=== PATIENT | male | born 1975 | race Caucasian/White ===

== ENCOUNTER 2017-12-14 12:08 | Emergency (ER) | payer SELFPAY ==
[2017-12-14 13:04] LABS: ADD MAN DIFF? NO
[2017-12-14] MEDS: SOD CHLORIDE 0.9% 1,000 ML IV (13:06)
[2017-12-14] MEDS: KETOROLAC 30 MG INJ IV (13:06)
[2017-12-14] MEDS: ACETAMINOPHEN 325 MG TAB PO (13:06)
[2017-12-14 13:09] LABS: WHITE BLOOD COUNT 16.6 10^3/ul (4.8-10.8)
[2017-12-14 13:09] LABS: BASOPHIL # 0.1 10^3/ul (0.0-0.1); BASOPHILS % 0.4 % (0.0-2.0); EOSINOPHILS % 0.1 % (0.0-7.0); HEMATOCRIT 42.8 % (42.0-52.0); HEMOGLOBIN 14.2 g/dl (14.0-18.0); LYMPHOCYTES # 1.6 10^3/ul (0.8-2.9); LYMPHOCYTES % 9.7 % (15.0-51.0); MEAN CORPUSCULAR HEMOGLOBIN 27.9 pg (29.0-33.0); MEAN CORPUSCULAR HGB CONC 33.2 g/dl (32.0-37.0); MEAN CORPUSCULAR VOLUME 84.1 fl (82.0-101.0); MEAN PLATELET VOLUME 9.2 fl (7.4-10.4); MONOCYTE # 0.9 10^3/ul (0.3-0.9); MONOCYTES % 5.4 % (0.0-11.0); NEUTROPHIL # 13.8 10^3/ul (1.6-7.5); NEUTROPHILS % 83.1 % (39.0-77.0); PLATELET COUNT 273 10^3/UL (140-415); RED BLOOD COUNT 5.09 10^6/ul (4.70-6.10); RED CELL DISTRIBUTION WIDTH 14.3 % (11.5-14.5)
[2017-12-14 13:28] LABS: ALANINE AMINOTRANSFERASE 154 IU/L (13-69); ALBUMIN 4.2 g/dl (3.3-4.9); ALKALINE PHOSPHATASE 299 IU/L (42-121); ANION GAP 15 (8-16); ASPARTATE AMINO TRANSFERASE 133 IU/L (15-46); BILIRUBIN,INDIRECT 0.4 mg/dl (0-1.1); BILIRUBIN,TOTAL 1.2 mg/dl (0.2-1.3); BLOOD UREA NITROGEN 11 mg/dl (7-20); CALCIUM 9.7 mg/dl (8.4-10.2); CARBON DIOXIDE 25 mmol/L (21-31); CHLORIDE 104 mmol/L (97-110); CREATININE 0.97 mg/dl (0.61-1.24); GLUCOSE 128 mg/dl (70-220); LIPASE 78 U/L (23-300); POTASSIUM 3.8 mmol/L (3.5-5.1); SODIUM 140 mmol/L (135-144); TOTAL PROTEIN 8.4 g/dl (6.1-8.1)
[2017-12-14 13:29] LABS: LACTIC ACID 1.6 mmol/L (0.5-2.0)
[2017-12-14 13:30] LABS: ADD UMIC YES; UR ASCORBIC ACID NEGATIVE (NEGATIVE); UR BACTERIA MANY /HPF (NONE SEEN); UR BILIRUBIN (Dip) 1+ mg/dL (NEGATIVE); UR BLOOD (Dip) 2+ mg/dL (NEGATIVE); UR CLARITY SLIGHTLY CLOUDY (CLEAR); UR COLOR AMBER (YELLOW); UR GLUCOSE (Dip) NEGATIVE (NEGATIVE); UR KETONES (Dip) NEGATIVE (NEGATIVE); UR LEUKOCYTE ESTERASE (Dip) 2+ Leu/ul (NEGATIVE); UR MUCUS MANY /HPF (NONE SEEN); UR NITRITE (Dip) POSITIVE (NEGATIVE); UR RBC 5 /HPF (0-5); UR SQUAMOUS EPITHELIAL CELL FEW /HPF (FEW); UR TOTAL PROTEIN (Dip) 2+ mg/dl (NEGATIVE); UR UROBILINOGEN (Dip) 2+ mg/dL (NEGATIVE); UR WBC 119 /HPF (0-5)
[2017-12-14 13:40] LABS: TROPONIN-I < 0.010 ng/ml (0.000-0.120)
[2017-12-14] MEDS: CEFTRIAXONE 1 GM/50 ML (PMX) 50 ML IVPB (14:01)
[2017-12-14] MEDS: SODIUM CHLORIDE 0.9% 1L BAG IV* (14:02)
[2017-12-14 15:59] LABS: LACTIC ACID 1.3 mmol/L (0.5-2.0)
== END 2017-12-14 16:10 | disposition home or self-care (01) ==
LOC: FTE 12:08
DX: N12 Tubulo-interstitial nephritis, not specified as acute or chronic (principal); F15.90 Other stimulant use, unspecified, uncomplicated; D72.829 Elevated white blood cell count, unspecified; F17.210 Nicotine dependence, cigarettes, uncomplicated; R10.11 Right upper quadrant pain
CPT/HCPCS: 36415; 71045; 74176; 76705; 80053; 81001; 83605; 83690; 84484; 85025; 87040; 87086; 93005; 96374; 96375; 99285-25

== ENCOUNTER → 2018-01-09 | Emergency (ER) | payer MEDICAID | END | disposition home or self-care (01) | LOC: FTE 12:03 | DX: M54.9 Dorsalgia, unspecified (principal); R40.2412 Glasgow coma scale score 13-15, at arrival to emergency department; Z87.891 Personal history of nicotine dependence | CPT/HCPCS: 99283; Z7502 ==